=== PATIENT | male | born 1995 | race Caucasian/White ===

== ENCOUNTER 2019-05-17 12:56 | Emergency (ER) | payer MEDICAID, OTHER ==
[~2019-05-17] VITALS: Ht 167.6 cm; Wt 68.0 kg
[2019-05-17] MEDS ORDERED: KETOROLAC 30MG/ML VIAL IM ONE (14:30)
[2019-05-17 17:00] VITALS: BP 119/66
== END 2019-05-17 17:07 | disposition home or self-care (01) ==
LOC: ER 12:56
DX: S16.1XXA Strain of muscle, fascia and tendon at neck level, initial encounter (principal); S39.012A Strain of muscle, fascia and tendon of lower back, initial encounter; V49.49XA Driver injured in collision with other motor vehicles in traffic accident, initial encounter; Y93.89 Activity, other specified; Y92.89 Other specified places as the place of occurrence of the external cause; Y99.8 Other external cause status; M25.512 Pain in left shoulder
CPT/HCPCS: 70160; 72040; 72100; 73030; 96372; 99284; J1885

== ENCOUNTER 2021-06-09 20:18 | Emergency (ER) | payer MEDICAID, OTHER ==
[~2021-06-09] VITALS: Ht 167.6 cm; Wt 71.0 kg
[2021-06-09] MEDS ORDERED: P20 MT (20:48)
[2021-06-09] MEDS ORDERED: GLYC30DR4 EACHEYE (20:48)
[2021-06-09] MEDS ORDERED: VALA10002 MT (20:48)
[2021-06-09 21:12] VITALS: BP 127/71
== END 2021-06-09 21:15 | disposition home or self-care (01) ==
LOC: ER 20:18
DX: G51.0 Bell's palsy (principal); H92.01 Otalgia, right ear
CPT/HCPCS: 93005; 99283

== ENCOUNTER 2023-03-23 19:24 | Emergency (ER) | payer MEDICAID ==
[~2023-03-23] VITALS: Ht 167.6 cm; Wt 72.0 kg
[~2023-03-23 19:24] MED LIST: GLYC30DR4 EACHEYE; P20 MT; VALA10002 MT
[2023-03-23 19:47] VITALS: BP 143/98; PULSE 78; RESP 20; TEMP 100.2; O2SAT 97
[2023-03-23 20:23] LABS: BASOPHILS % 0.2 % (0.0-2.0); HEMATOCRIT. 45.5 % (42.0-52.0); HEMOGLOBIN. 15.9 g/dL (14.0-18.0); LYMPHOCYTES % 10.6 % (20.0-50.0); MEAN CORPUSCULAR HEMOGLOBIN 29.7 pg (28.0-32.0); MEAN CORPUSCULAR HGB CONC 34.8 g/dL (31.0-37.0); MEAN CORPUSCULAR VOLUME 85.4 fL (80.0-94.0); MEAN PLATELET VOLUME 8.1 fl (7.4-10.4); MONOCYTES % 10.1 % (2.0-8.0); NEUTROPHILS % 79.1 % (40.0-76.0); PLATELET 216 x1000/uL (130-400); RED BLOOD CELL COUNT 5.33 mill/uL (4.7-6.1); RED CELL DISTRIBUTION WIDTH 12.9 % (11.6-14.6); WHITE BLOOD COUNT 8.5 x1000/uL (4.5-11.0)
[2023-03-23 20:25] LABS: DIFFERENTIAL COMMENT 1
[2023-03-23 20:34] LABS: D-DIMER < 0.19 mg/L FEU (<0.50); INR 1.1; PROTHROMBIN TIME 11.4 sec (9.6-11.0)
[2023-03-23 20:41] LABS: ALANINE AMINOTRANSFERASE 16 IU/L (10-49); ALBUMIN 4.9 g/dL (3.2-4.8); ASPARTATE AMINOTRANSFERASE 24 IU/L (<34); BILIRUBIN TOTAL 0.4 mg/dL (0.1-1.0); CALCIUM 9.6 mg/dL (8.7-10.4); CARBON DIOXIDE 28 mEq/L (21-32); CHLORIDE 103 mEq/L (98-107); CREATININE 0.8 mg/dL (0.6-1.3); GLUCOSE 98 mg/dL (70-105); POTASSIUM 3.5 mEq/L (3.5-5.1); PROTEIN TOTAL 8.2 g/dL (6.0-8.3); SODIUM 141 mEq/L (136-145); UREA NITROGEN BLOOD 15 mg/dL (9-23)
[2023-03-23 20:46] LABS: TROPONIN I HIGH SENSITIVITY < 4 ng/L (3.0-53)
[2023-03-23] MEDS ORDERED: D-ME473S50 PO (21:10)
[2023-03-23] MEDS ORDERED: TAM75 MT (21:10)
[2023-03-23] MEDS ORDERED: ACET325T52 MT (21:18)
[2023-03-23] MEDS ORDERED: ONDA4TAB11 PO (21:19)
== END 2023-03-24 00:19 | disposition home or self-care (01) ==
LOC: ER 19:24
DX: J11.1 Influenza due to unidentified influenza virus with other respiratory manifestations (principal); R04.2 Hemoptysis; F12.10 Cannabis abuse, uncomplicated; Z79.899 Other long term (current) drug therapy; Z20.822 Contact with and (suspected) exposure to COVID-19
CPT/HCPCS: 99285; 71045; 80053; 83605; 83690; 85025; 85379; 85610; 85730; 84484; 87804 ×2; 36415; 93005; 87426; C9803